=== PATIENT | female | born 1960 | race Caucasian/White ===

== ENCOUNTER 2017-06-19 01:57 | Emergency (ER) | payer MEDICARE, MEDICAID ==
[~2017-06-19] VITALS: Ht 170.2 cm; Wt 67.2 kg
[~2017-06-19 01:57] MED LIST: ENOX40SY7 SQ; FERR324T4 PO; NICO-630 TOP; TRAM50TA2 PO
[2017-06-19 02:03] VITALS: BP 111/73
[2017-06-19] MEDS ORDERED: ondansetron 4mg rapidly disintigrating tab PO ONE (02:30)
[2017-06-19] MEDS ORDERED: HYDROcodone/acetaminophen 10/325mg tab PO ONE (02:30)
[2017-06-19 02:33] LABS: UA COLLECTION TYPE CLN CATCH MIDSTREAM
[2017-06-19 02:34] LABS: CLARITY,URINE CLOUDY (Clear); COLOR,URINE YELLOW (Yellow); GLUCOSE, URINE NEGATIVE (Neg); KETONES,URINE NEGATIVE (Neg); LEUKOCYTE ESTERASE ,URINE LARGE (Neg); NITRITES, URINE POSITIVE (Neg); OCCULT BLOOD,URINE LARGE (Neg); PROTEIN,URINE 100 mg/dl (Neg); UROBILINOGEN,URINE 0.2 E.U/dL (0.2-1.0)
[2017-06-19 02:42] LABS: WBC,URINE TNTC /HPF (0-4)
[2017-06-19 02:43] LABS: BACTERIA,URINE 1+ /HPF (Neg); MUCUS STRANDS NONE SEEN /LPF (Neg); SQUAMOUS EPITHELIAL CELL,UR NONE SEEN /LPF (FEW)
[2017-06-19 03:07] LABS: BASOPHILS % (AUTO) 0.1 % (0-1); EOSINOPHILS % (AUTO) 0.3 % (0-6); HEMATOCRIT 45.2 % (35.0-45.0); HEMOGLOBIN 14.9 g/dl (12.0-16.0); LYMPHOCYTES # (AUTO) 1.2 X10'3 (1.1-4.8); LYMPHOCYTES % (AUTO) 13.5 % (21-51); MEAN CORPUSCULAR HEMOGLOBIN 30.5 PG (27.0-31.0); MEAN CORPUSCULAR HGB CONC 33.1 % (33.0-36.5); MEAN CORPUSCULAR VOLUME 92.1 FL (78-98); MEAN PLATELET VOLUME 7.5 FL (7.4-10.4); MONOCYTES # (AUTO) 0.6 X10'3 (0-0.9); MONOCYTES % (AUTO) 6.6 % (2-12); NEUTROPHILS # (AUTO) 7.3 X10'3 (1.8-7.7); NEUTROPHILS % (AUTO) 79.5 % (42-75); PLATELET COUNT 265 X10'3 (140-440); RED CELL DISTRIBUTION WIDTH 12.3 % (11.5-14.5); WHITE BLOOD COUNT 9.2 X10'3 (4.5-11.0)
[2017-06-19] MEDS ORDERED: CefTRIAXone 1000mg IM Kit (w/lidocaine diluent) IM ONE (03:25)
[2017-06-19 03:33] LABS: ALANINE AMINOTRANSFERASE 111 U/L (12-78); ALBUMIN 3.7 G/DL (3.4-5.0); ALBUMIN/GLOBULIN RATIO 0.9 (1.1-1.5); ALKALINE PHOSPHATASE 187 IU/L (46-116); ANION GAP 10 (8-16); ASPARTATE AMINO TRANSFERASE 76 U/L (10-37); BILIRUBIN,TOTAL 0.4 MG/DL (0.1-1.0); BLOOD UREA NITROGEN 17 MG/DL (7-18); BUN/CREATININE RATIO 17.2 (6.6-38.0); CALCIUM 9.4 MG/DL (8.5-10.1); CHLORIDE 103 MMOL/L (99-107); CREATININE 0.99 MG/DL (0.40-0.90); GLUCOSE 114 MG/DL (70-104); LIPASE 120 U/L (73-393); POTASSIUM 3.7 MMOL/L (3.5-5.1); SODIUM 139 MMOL/L (135-145); TOTAL CARBON DIOXIDE 25.9 MMOL/L (24-32); TOTAL PROTEIN 7.9 G/DL (6.4-8.2); TROPONIN I < 0.04 NG/ML (0.0-0.05); eGFR 58 ML/MIN
[2017-06-19] MEDS ORDERED: ONDA8TAB9 PO (03:50)
[2017-06-19] MEDS ORDERED: DOXY100C43 PO (03:50)
== END 2017-06-19 04:14 | disposition home or self-care (01) ==
LOC: ER 01:57
DX: N12 Tubulo-interstitial nephritis, not specified as acute or chronic (principal); F17.200 Nicotine dependence, unspecified, uncomplicated; G89.29 Other chronic pain; F12.10 Cannabis abuse, uncomplicated; Z90.710 Acquired absence of both cervix and uterus; Z90.49 Acquired absence of other specified parts of digestive tract; Z88.5 Allergy status to narcotic agent; Z60.2 Problems related to living alone
CPT/HCPCS: 36415; 74176; 80053; 81001; 83605; 83690; 84484; 85025; 87040; 87077; 87088; 87186; 96372; 99285; J0696

== ENCOUNTER 2017-06-23 13:02 | Emergency (ER) | payer MEDICARE, MEDICAID ==
[~2017-06-23] VITALS: Ht 170.2 cm; Wt 65.0 kg
[~2017-06-23 13:02] MED LIST changes: +DOXY100C43 PO; +ONDA8TAB9 PO
[2017-06-23 13:48] VITALS: BP 112/87
== END 2017-06-23 15:24 | disposition left against medical advice (07) ==
LOC: ER 13:03
DX: Z53.21 Procedure and treatment not carried out due to patient leaving prior to being seen by health care provider (principal)

== ENCOUNTER 2017-10-15 06:45 | Day surgery (SDC) | payer MEDICARE, MEDICAID ==
[2017-10-09 10:32] LABS: BASOPHILS % (AUTO) 0.6 % (0-1); EOSINOPHILS # (AUTO) 0.1 X10'3 (0-0.9); EOSINOPHILS % (AUTO) 1.8 % (0-6); LYMPHOCYTES # (AUTO) 2.4 X10'3 (1.1-4.8); LYMPHOCYTES % (AUTO) 48.5 % (21-51); MEAN CORPUSCULAR HEMOGLOBIN 31.4 PG (27.0-31.0); MEAN CORPUSCULAR HGB CONC 34.7 % (33.0-36.5); MEAN CORPUSCULAR VOLUME 90.3 FL (78-98); MEAN PLATELET VOLUME 7.3 FL (7.4-10.4); MONOCYTES # (AUTO) 0.4 X10'3 (0-0.9); MONOCYTES % (AUTO) 8.6 % (2-12); NEUTROPHILS % (AUTO) 40.5 % (42-75); PRE OP HEMATOCRIT 39.7 % (35.0-45.0); PRE OP HEMOGLOBIN 13.8 g/dL (12.0-16.0); PRE OP PLATELET COUNT 241 X10'3 (140-440); RED CELL DISTRIBUTION WIDTH 12.9 % (11.5-14.5)
[2017-10-09 10:42] LABS: CLARITY,URINE CLEAR (Clear); COLOR,URINE YELLOW (Yellow); GLUCOSE, URINE NEGATIVE (Neg); KETONES,URINE NEGATIVE (Neg); LEUKOCYTE ESTERASE ,URINE NEGATIVE (Neg); NITRITES, URINE NEGATIVE (Neg); OCCULT BLOOD,URINE NEGATIVE (Neg); PH,URINE 5.5 (4.8-8.0); PROTEIN,URINE NEGATIVE (Neg); UROBILINOGEN,URINE 0.2 E.U/dL (0.2-1.0)
[2017-10-09 10:47] LABS: UA COLLECTION TYPE NON-SPECIFIED
[2017-10-09 10:58] LABS: ALBUMIN 3.6 G/DL (3.4-5.0); ALBUMIN/GLOBULIN RATIO 1.1 (1.1-1.5); ALKALINE PHOSPHATASE 106 IU/L (46-116); BLOOD UREA NITROGEN 19 MG/DL (7-18); BUN/CREATININE RATIO 21.6 (6.6-38.0); CALCIUM 8.6 MG/DL (8.5-10.1); CHLORIDE 105 MMOL/L (99-107); CREATININE 0.88 MG/DL (0.40-0.90); PRE OP ALT 27 U/L (30-65); PRE OP ANION GAP 6 (8-16); PRE OP AST 17 U/L (10-37); PRE OP BILIRUB, TOTAL 0.3 MG/DL (0.0-1.0); PRE OP GLUCOSE 72 MG/DL (70-104); PRE OP POTASSIUM 3.6 MMOL/L (3.4-5.1); PRE OP SODIUM 138 MMOL/L (135-145); TOTAL CARBON DIOXIDE 27.2 MMOL/L (24-32); TOTAL PROTEIN 6.9 G/DL (6.4-8.2); eGFR 66 ML/MIN
[2017-10-15] VITALS (9 sets, daily range): BP systolic 110–141; BP diastolic 65–86
[~2017-10-15] VITALS: Ht 170.2 cm; Wt 63.9 kg
[~2017-10-15 06:45] MED LIST changes: +ASPI81TA46 PO; +BUPIVAcaine/PF 2.5mg/ml (0.25%) 10ml vial ONE; -DOXY100C43 PO; -ENOX40SY7 SQ; -FERR324T4 PO; +GLUC-219 PO; +LIDOcaine 1% (10mg/ml) 2ml vial ONE; -NICO-630 TOP; -ONDA8TAB9 PO; -TRAM50TA2 PO; +VIT-11 PO; +famotidine 20mg tablet PO ONE; +ringers solution, lacted 1,000 ML IV SCH; +scopolamine 1.5mg patch.TD72 TD ONE
[2017-10-15] MEDS ORDERED: Cefazolin 2GM/50ML dext iso,osmotic IVPB IV ONE (07:26)
[2017-10-15] MEDS ORDERED: VANCOMYCIN INJ 1000 MG in NORMAL SALINE 250ml IV.SOLN IV ONE (07:26)
[2017-10-15] MEDS ORDERED: ringers solution, lacted 1,000 ML IV SCH (08:48)
[2017-10-15] MEDS ORDERED: ondansetron/PF 4mg/2ml inj IV PRN (08:50)
[2017-10-15] MEDS ORDERED: proCHLORperazine 10 MG/2 ml inj IV PRN (08:50)
[2017-10-15] MEDS ORDERED: meperidine/PF 25mg/ml syringe IV PRN ×3 (08:50)
[2017-10-15] MEDS ORDERED: morphine 4 MG/ML inj SYRINge IV PRN ×2 (08:50)
[2017-10-15] MEDS ORDERED: sevoflurane 250ml liquid IH ONE ×2 (09:42)
[2017-10-15] MEDS ORDERED: fentaNYL/PF 50MCG/1 ML 2ML syringe ONE (09:44)
[2017-10-15] MEDS ORDERED: midazolam 2 mg/2 ml injection ONE (09:45)
[2017-10-15] MEDS ORDERED: LIDOcaine 2% (20mg/ml) 5ml vial ONE (09:46)
[2017-10-15] MEDS ORDERED: propofol inj 20 ML IV ONE (09:46)
[2017-10-15] MEDS ORDERED: dexamethasone sod phosphate 4mg/ml inj. ONE (09:52)
[2017-10-15] MEDS ORDERED: ondansetron/PF 4mg/2ml inj ONE (09:53)
[2017-10-15] MEDS ORDERED: methylPREDNISolone sod succ 125mg/2ml vial ONE (10:09)
== END 2017-10-15 11:35 | disposition home or self-care (01) ==
LOC: PRE-OP 06:45 → PAS 11:35
PROVIDERS: ATTEND Orthopaedic Surgery
DX: D36.10 Benign neoplasm of peripheral nerves and autonomic nervous system, unspecified (principal); G57.12 Meralgia paresthetica, left lower limb; J44.9 Chronic obstructive pulmonary disease, unspecified; M19.90 Unspecified osteoarthritis, unspecified site; Z72.89 Other problems related to lifestyle; Z90.710 Acquired absence of both cervix and uterus; Z96.611 Presence of right artificial shoulder joint; Z79.82 Long term (current) use of aspirin; Z79.891 Long term (current) use of opiate analgesic; Z96.643 Presence of artificial hip joint, bilateral; Z87.891 Personal history of nicotine dependence; Z90.49 Acquired absence of other specified parts of digestive tract; Z88.5 Allergy status to narcotic agent; Z79.899 Other long term (current) drug therapy; Z98.890 Other specified postprocedural states
CPT/HCPCS: 36415; 64714; 80053; 81003; 84443; 85025; 93005; A6449; J0690; J1100; J2001; J2250; J2405; J2704; J2930; J3010; J3370; J3490; J7030; J7120; 88304; A7000

== ENCOUNTER 2017-12-27 19:57 | Emergency (ER) | payer MEDICARE, MEDICAID ==
[~2017-12-27] VITALS: Ht 170.2 cm; Wt 65.4 kg
[~2017-12-27 19:57] MED LIST changes: -BUPIVAcaine/PF 2.5mg/ml (0.25%) 10ml vial ONE; -LIDOcaine 1% (10mg/ml) 2ml vial ONE; -famotidine 20mg tablet PO ONE; -ringers solution, lacted 1,000 ML IV SCH; -scopolamine 1.5mg patch.TD72 TD ONE
[2017-12-27] MEDS ORDERED: TETanus/Pertussis (Acell)/Diphther VAC/PF (Tdap-Adult) 0.5ml syringe IMVAC ONE (20:50)
[2017-12-27] MEDS ORDERED: ibuprofen tablet 400 MG TABLET PO ONE (20:50)
[2017-12-27 21:31] VITALS: BP 132/71
== END 2017-12-27 21:33 | disposition home or self-care (01) ==
LOC: ER 19:57
DX: S91.332A Puncture wound without foreign body, left foot, initial encounter (principal); G89.29 Other chronic pain; F17.200 Nicotine dependence, unspecified, uncomplicated; F12.90 Cannabis use, unspecified, uncomplicated; Z90.49 Acquired absence of other specified parts of digestive tract; Z90.710 Acquired absence of both cervix and uterus; Z88.6 Allergy status to analgesic agent; W22.8XXA Striking against or struck by other objects, initial encounter; Y93.89 Activity, other specified; Y92.89 Other specified places as the place of occurrence of the external cause; Y99.8 Other external cause status
CPT/HCPCS: 90471; 90715; 99283

== ENCOUNTER 2018-09-05 20:33 | Emergency (ER) | payer MEDICARE, MEDICAID ==
[~2018-09-05] VITALS: Ht 170.2 cm; Wt 68.2 kg
[~2018-09-05 20:33] MED LIST changes: +ASPI81TA44 PO; -ASPI81TA46 PO
[2018-09-05 20:46] VITALS: BP 122/85
[2018-09-05] MEDS ORDERED: ketorolac trometh inj. 60 MG/2 ML VIAL IM ONE (21:45)
== END 2018-09-05 22:03 | disposition home or self-care (01) ==
LOC: ER 20:34
DX: S90.32XA Contusion of left foot, initial encounter (principal); G89.29 Other chronic pain; F12.10 Cannabis abuse, uncomplicated; Z88.5 Allergy status to narcotic agent; Z90.710 Acquired absence of both cervix and uterus; Z90.49 Acquired absence of other specified parts of digestive tract; W18.30XA Fall on same level, unspecified, initial encounter; Y93.89 Activity, other specified; Y92.89 Other specified places as the place of occurrence of the external cause; Y99.8 Other external cause status
CPT/HCPCS: 73630; 96372; 99283; J1885

== ENCOUNTER 2018-12-16 05:25 | Inpatient (IN) | payer MEDICARE, MEDICAID ==
[2018-12-08 15:32] LABS: CLARITY,URINE SLIGHTLY CLOUDY (Clear); GLUCOSE, URINE NEGATIVE (Neg); KETONES,URINE NEGATIVE (Neg); LEUKOCYTE ESTERASE ,URINE TRACE (Neg); NITRITES, URINE NEGATIVE (Neg); OCCULT BLOOD,URINE NEGATIVE (Neg); PH,URINE 5.5 (4.8-8.0); PROTEIN,URINE TRACE mg/dl (Neg); UROBILINOGEN,URINE 0.2 E.U/dL (0.2-1.0)
[2018-12-08 15:35] LABS: BASOPHILS % (AUTO) 0.8 % (0-1); EOSINOPHILS # (AUTO) 0.1 X10'3 (0-0.9); EOSINOPHILS % (AUTO) 1.5 % (0-6); LYMPHOCYTES # (AUTO) 2.4 X10'3 (1.1-4.8); LYMPHOCYTES % (AUTO) 50.7 % (21-51); MEAN CORPUSCULAR HEMOGLOBIN 30.9 PG (27.0-31.0); MEAN CORPUSCULAR HGB CONC 33.6 g/dL (33.0-36.5); MEAN PLATELET VOLUME 7.4 FL (7.4-10.4); MONOCYTES # (AUTO) 0.4 X10'3 (0-0.9); MONOCYTES % (AUTO) 8.4 % (2-12); NEUTROPHILS # (AUTO) 1.9 X10'3 (1.8-7.7); NEUTROPHILS % (AUTO) 38.6 % (42-75); PRE OP HEMATOCRIT 41.8 % (35.0-45.0); PRE OP PLATELET COUNT 267 X10'3 (140-440); RED BLOOD COUNT 4.54 X10'6 (4.20-5.60); RED CELL DISTRIBUTION WIDTH 12.4 % (11.5-14.5)
[2018-12-08 15:39] LABS: UA COLLECTION TYPE CLN CATCH MIDSTREAM
[2018-12-08 15:40] LABS: COLOR,URINE AMBER (Yellow)
[2018-12-08 15:43] LABS: PRE OP PROTIME 10.3 SECONDS (9.0-12.0)
[2018-12-08 15:47] LABS: RBC,URINE NONE SEEN /HPF (0-2); WBC,URINE 0-4 /HPF (0-4)
[2018-12-08 15:48] LABS: BACTERIA,URINE 1+ /HPF (Neg); HYALINE CASTS 0-3 /LPF (NEGATIVE); MUCUS STRANDS MODERATE /LPF (Neg); SQUAMOUS EPITHELIAL CELL,UR FEW /LPF (FEW)
[2018-12-08 15:49] LABS: ALBUMIN 3.7 G/DL (3.4-5.0); ALBUMIN/GLOBULIN RATIO 1.1 (1.1-1.5); ALKALINE PHOSPHATASE 88 IU/L (46-116); BLOOD UREA NITROGEN 18 MG/DL (7-18); BUN/CREATININE RATIO 18.9 (6.6-38.0); CALCIUM 8.6 MG/DL (8.5-10.1); CHLORIDE 108 MMOL/L (99-107); CREATININE 0.95 MG/DL (0.40-0.90); PRE OP ALT 22 U/L (30-65); PRE OP ANION GAP 6 (8-16); PRE OP AST 18 U/L (10-37); PRE OP BILIRUB, TOTAL 0.3 MG/DL (0.0-1.0); PRE OP GLUCOSE 88 MG/DL (70-104); PRE OP POTASSIUM 4.2 MMOL/L (3.4-5.1); PRE OP SODIUM 143 MMOL/L (135-145); TOTAL CARBON DIOXIDE 28.9 MMOL/L (24-32); eGFR 60 ML/MIN
[~2018-12-16] VITALS: Ht 170.2 cm; Wt 62.6 kg
[2018-12-16] VITALS (16 sets, daily range): BP systolic 97–151; BP diastolic 67–95
[2018-12-16] MEDS ORDERED: albuterol 2.5 MG/3 ML nebule NEB ONE (05:30)
[2018-12-16] MEDS ORDERED: cefazolin/dext.iso 2gm/50ml 50 ML IV ONE (05:30)
[2018-12-16] MEDS ORDERED: VANCOMYCIN INJ 1000 MG in NORMAL SALINE 250ml IV.SOLN IV ONE (05:30)
[2018-12-16] MEDS ORDERED: famotidine 20mg tablet PO ONE (05:30)
[2018-12-16] MEDS ORDERED: ringers solution, lacted 1,000 ML IV SCH ×2 (05:30→08:49)
[2018-12-16] MEDS ORDERED: LIDOcaine 1% (10mg/ml) 2ml vial ONE (06:14)
[2018-12-16] MEDS ORDERED: ROPIVAcaine 0.5% (5mg/ml) 30ml vial ONE (07:10)
[2018-12-16] MEDS ORDERED: cloNIDine hcl/PF 100mcg/ml inj ONE (07:10)
[2018-12-16] MEDS ORDERED: MIDAZolam 5mg/5ml vial ONE (07:13)
[2018-12-16] MEDS ORDERED: fentaNYL/PF 50MCG/1 ML 2ML syringe ONE (07:13)
[2018-12-16] MEDS ORDERED: propofol inj 20 ML IV ONE (07:13)
[2018-12-16] MEDS ORDERED: sevoflurane 250ml liquid IH ONE (07:16)
[2018-12-16] MEDS ORDERED: meperidine/PF 25mg/ml syringe IV PRN ×3 (08:50)
[2018-12-16] MEDS ORDERED: proCHLORperazine 10 MG/2 ml inj IV PRN (08:50)
[2018-12-16] MEDS ORDERED: ondansetron/PF 4mg/2ml inj IV PRN ×2 (08:50→10:30)
[2018-12-16] MEDS ORDERED: morphine 4 MG/ML inj SYRINge IV PRN ×2 (08:50)
[2018-12-16] MEDS ORDERED: ceFAZolin 1000mg inj ONE (09:56)
[2018-12-16] MEDS ORDERED: dexamethasone sod phosphate 4mg/ml inj. ONE (09:57)
[2018-12-16] MEDS ORDERED: ondansetron/PF 4mg/2ml inj ONE (09:57)
--- NOTE | 2018-12-16 10:13 | NUR ---
Received from OR via , accompanied by Anesthesiologist DR DOMINGUEZ and report given by Anesthesiolgist. AWAKENS TO VOICE. VITALS STABLE. DRESSING DI. YARELI PAIN. FINGERS WARM AND PINK. LUE IN SIMPLE SLING.
[2018-12-16] MEDS ORDERED: acetaminophen 325mg tablet PO PRN (10:30)
[2018-12-16] MEDS ORDERED: mag hydrox/Alum hydrox/simeth 30ml oral suspension PO PRN (10:30)
[2018-12-16] MEDS ORDERED: metoclopramide 5 mg/ml inj IV PRN (10:30)
[2018-12-16] MEDS ORDERED: magnesium hydroxide 30ml (MOM) UD suspension PO PRN (10:30)
[2018-12-16] MEDS ORDERED: bisacodyl 10mg suppository rectal RC PRN (10:30)
[2018-12-16] MEDS ORDERED: diphenhydrAMINE 25mg capsule PO PRN ×2 (10:30)
[2018-12-16] MEDS ORDERED: naloxone 0.4 mg/ml inj IV PRN (10:30)
[2018-12-16] MEDS ORDERED: CADD PCA waste documentation MC PRN (10:30)
[2018-12-16] MEDS: ROPIVAcaine 0.2%/PF PAIN PUMP 550 ML IJ SCH (10:31)
--- NOTE | 2018-12-16 11:03 | NUR ---
Patient in room PAS IN 900. I have received report from Darrell DORADO and had the opportunity to ask questions and assume patient care.
--- NOTE | 2018-12-16 11:13 | NUR ---
Report called to receiving nurse. Transferred via BED Belongings . Special Issues communicated to receiving nurse. AWAKE AND ORIENTED. VITALS STABLE. DRESSING DI. STATES PAIN IMPROVING. TO ORTHO RM 4009C AT THIS TIME.
--- NOTE | 2018-12-16 11:34 | NUR ---
patient on the floor. s Addendum: 12/16/18 at 1136 by Kvng Coyne RN patient on the floor. post op vitals started. family at bed side. received report from Darrell DORADO. hemo vac emptied 120ml.
[2018-12-16] MEDS: potassium cl 20mEq in 1/2 NS 1,000 ML IV SCH ×3 (11:46→21:22)
--- NOTE | 2018-12-16 11:53 | NUR ---
CALL EDDIE GRAF WHEN DISCHARGED.
[2018-12-16] MEDS: HYDROmorphone/NS 1 mg/ml CADD 50 ML IV SCH ×6 (12:07→23:00)
[2018-12-16] MEDS: gabapentin 300mg capsule PO SCH ×2 (13:20→21:18)
[2018-12-16] MEDS: HYDROcodone/acetaminophen 10/325mg tab PO PRN ×2 (13:20→19:20)
[2018-12-16] MEDS: ceFAZolin 1GM/D5W- ADD-VANTAGE 50 ML IV SCH (16:08)
--- NOTE | 2018-12-16 18:00 | NUR ---
I AGREE WITH MY PRECEPTEE KAMRYN DORADO'S CHARTING.
--- NOTE | 2018-12-16 18:13 | NUR ---
Problems reprioritized. Patient report given, questions answered & plan of care reviewed with Faith DORADO.
[2018-12-16] MEDS ORDERED: vancomycin/NS 1 GM ADD-VANTAGE 250 ML IV SCH (20:00)
[2018-12-16] MEDS: sennosides/docusate sodium tablet PO SCH (20:00)
[2018-12-16] MEDS: sennosides 8.6mg tablet PO SCH (21:18)
[2018-12-17] MEDS: ceFAZolin 1GM/D5W- ADD-VANTAGE 50 ML IV SCH (00:37)
[2018-12-17] MEDS: HYDROcodone/acetaminophen 10/325mg tab PO PRN ×6 (00:42→22:05)
[2018-12-17] MEDS: HYDROmorphone/NS 1 mg/ml CADD 50 ML IV SCH ×3 (01:00→05:00)
[2018-12-17 02:00] VITALS: BP 97/66
[2018-12-17] MEDS: potassium cl 20mEq in 1/2 NS 1,000 ML IV SCH ×2 (05:27→18:26)
[2018-12-17 06:00] VITALS: BP 96/63
--- NOTE | 2018-12-17 06:08 | NUR ---
pt in immoblilizer for shoulder. will D/C cadd as pt pain is controlled.
--- NOTE | 2018-12-17 06:31 | NUR ---
reported to days. noted pt does not have a CADD, will discontinue. SL patient to work with PT. norco given prior to PT. anticipate home today if pain controlled.
--- NOTE | 2018-12-17 06:33 | NUR ---
Patient in room ORTHO 4009. I have received report from Viktoriya DORADO and Latricia DORADO and had the opportunity to ask questions and assume patient care.
--- NOTE | 2018-12-17 06:36 | NUR ---
pain reassessment not done at 0541
[2018-12-17 06:57] LABS: ANION GAP 7 (8-16); CHLORIDE 109 MMOL/L (99-107); POTASSIUM 5.1 MMOL/L (3.5-5.1); SODIUM 141 MMOL/L (135-145); TOTAL CARBON DIOXIDE 25.3 MMOL/L (24-32)
[2018-12-17 06:58] LABS: BASOPHILS % (AUTO) 0.2 % (0-1); EOSINOPHILS % (AUTO) 0.4 % (0-6); HEMATOCRIT 30.2 % (35.0-45.0); HEMOGLOBIN 10.2 g/dl (12.0-16.0); LYMPHOCYTES # (AUTO) 1.8 X10'3 (1.1-4.8); LYMPHOCYTES % (AUTO) 23.3 % (21-51); MEAN CORPUSCULAR HEMOGLOBIN 31.5 PG (27.0-31.0); MEAN CORPUSCULAR HGB CONC 33.9 g/dL (33.0-36.5); MEAN CORPUSCULAR VOLUME 92.9 FL (78-98); MEAN PLATELET VOLUME 7.9 FL (7.4-10.4); MONOCYTES # (AUTO) 0.7 X10'3 (0-0.9); MONOCYTES % (AUTO) 8.7 % (2-12); NEUTROPHILS # (AUTO) 5.2 X10'3 (1.8-7.7); NEUTROPHILS % (AUTO) 67.4 % (42-75); PLATELET COUNT 195 X10'3 (140-440); RED BLOOD COUNT 3.25 X10'6 (4.20-5.60); RED CELL DISTRIBUTION WIDTH 12.4 % (11.5-14.5); WHITE BLOOD COUNT 7.8 X10'3 (4.5-11.0)
[2018-12-17] MEDS: sennosides/docusate sodium tablet PO SCH ×2 (07:05→19:52)
[2018-12-17] MEDS: multivitamins, therapeutics tablet PO SCH (07:05)
[2018-12-17] MEDS: gabapentin 300mg capsule PO SCH ×3 (07:05→19:52)
[2018-12-17] MEDS: enoxaparin 40mg/0.4ml syringe SQ SCH (07:06)
[2018-12-17 10:00] VITALS: BP 93/60
--- NOTE | 2018-12-17 15:32 | NUR ---
Pt s/p total left shoulder surgery seen at bedside provided with written and verbal protein education with RD contact information. Pt currently on regular diet documented with 75% PO intake. Pt requests double protein TID, cottage cheese TID, and regular yogurt TID. Pt reports difficulty cutting food d/t recent surgery and is agreeable to chop all TID. All preferences d/w dietary. Will continue to follow. Addendum: 12/17/18 at [address] Amended: Links added.
--- NOTE | 2018-12-17 16:13 | NUR ---
multiple calls to Dr. Morris regarding pain medication for DC and if patient needs to start asprin. No answer.
[2018-12-17 18:00] VITALS: BP 116/75
--- NOTE | 2018-12-17 18:06 | NUR ---
I AGREE WITH MY PRECEPTEE KAMRYN DORADO'S CHARTING.
--- NOTE | 2018-12-17 18:15 | NUR ---
Patient in room ORTHO 4009. I have received report from SamRN and KvngRN and had the opportunity to ask questions and assume patient care.
--- NOTE | 2018-12-17 18:23 | NUR ---
Problems reprioritized. Patient report given, questions answered & plan of care reviewed with Sadie DORADO.
[2018-12-17] MEDS: sennosides 8.6mg tablet PO SCH (19:52)
[2018-12-17] MEDS: celeCOXIB 100mg capsule PO SCH (19:52)
--- NOTE | 2018-12-17 20:45 | NUR ---
I increased the OnQpump to 6ml/hr from 4ml/hr since she is unable to have pain medicine until 21:30.
[2018-12-17 22:00] VITALS: BP 113/78
[2018-12-18] MEDS: potassium cl 20mEq in 1/2 NS 1,000 ML IV SCH (02:26)
[2018-12-18] MEDS: HYDROcodone/acetaminophen 10/325mg tab PO PRN ×2 (04:35→08:20)
[2018-12-18 06:00] VITALS: BP 107/69
--- NOTE | 2018-12-18 06:42 | NUR ---
Problems reprioritized. Patient report given, questions answered & plan of care reviewed with AVE Sparrow.
[2018-12-18 06:53] LABS: BASOPHILS % (AUTO) 0.7 % (0-1); EOSINOPHILS % (AUTO) 1.3 % (0-6); HEMATOCRIT 29.9 % (35.0-45.0); HEMOGLOBIN 10.1 g/dl (12.0-16.0); LYMPHOCYTES # (AUTO) 1.3 X10'3 (1.1-4.8); LYMPHOCYTES % (AUTO) 35.2 % (21-51); MEAN CORPUSCULAR HEMOGLOBIN 31.6 PG (27.0-31.0); MEAN CORPUSCULAR HGB CONC 33.9 g/dL (33.0-36.5); MEAN CORPUSCULAR VOLUME 93.3 FL (78-98); MEAN PLATELET VOLUME 7.8 FL (7.4-10.4); MONOCYTES # (AUTO) 0.4 X10'3 (0-0.9); MONOCYTES % (AUTO) 11.2 % (2-12); NEUTROPHILS % (AUTO) 51.6 % (42-75); PLATELET COUNT 180 X10'3 (140-440); RED BLOOD COUNT 3.21 X10'6 (4.20-5.60); RED CELL DISTRIBUTION WIDTH 13.1 % (11.5-14.5); WHITE BLOOD COUNT 3.8 X10'3 (4.5-11.0)
--- NOTE | 2018-12-18 06:57 | NUR ---
Patient in room ORTHO 4009. I have received report from Sadie DORADO and had the opportunity to ask questions and assume patient care.
[2018-12-18] MEDS: celeCOXIB 100mg capsule PO SCH (08:18)
[2018-12-18] MEDS: gabapentin 300mg capsule PO SCH (08:18)
[2018-12-18] MEDS: multivitamins, therapeutics tablet PO SCH (08:18)
[2018-12-18] MEDS: sennosides/docusate sodium tablet PO SCH (08:19)
[2018-12-18] MEDS: enoxaparin 40mg/0.4ml syringe SQ SCH (08:21)
[2018-12-18] MEDS: ROPIVAcaine 0.2%/PF PAIN PUMP 550 ML IJ SCH (09:38)
--- NOTE | 2018-12-18 11:56 | NUR ---
Patient discharge to home with sister, all belongings sent, pain meds e-scripted to [facility] in [place] by Dr. morley, patient stable upon discharge
== END 2018-12-18 12:10 | disposition home or self-care (01) | DRG 483 ==
LOC: PAS IN 05:25 → EDSTATUS 07:30 → ORTHO 4S 11:55
PROVIDERS: ADMIT Orthopaedic Surgery; ATTEND Orthopaedic Surgery
PROC: 0RRK0JZ Replacement of Left Shoulder Joint with Synthetic Substitute, Open Approach (ICD-10-PCS; principal; 2018-12-18)
PROC: 3E0T3BZ Introduction of Anesthetic Agent into Peripheral Nerves and Plexi, Percutaneous Approach (ICD-10-PCS; 2018-12-18)
DX: M19.012 Primary osteoarthritis, left shoulder (principal); D62 Acute posthemorrhagic anemia; K21.9 Gastro-esophageal reflux disease without esophagitis; Z96.611 Presence of right artificial shoulder joint; F17.210 Nicotine dependence, cigarettes, uncomplicated; Z96.643 Presence of artificial hip joint, bilateral; G57.12 Meralgia paresthetica, left lower limb; Z79.899 Other long term (current) drug therapy; Z88.5 Allergy status to narcotic agent; Z79.82 Long term (current) use of aspirin
CPT/HCPCS: 36415; 73020; 80051; 80053; 81001; 82948; 85025; 85610; 85730; 87081; 87088; 94640; 94760; 97161; 97530; A4618; A6250; A6258; A6449; A7000; C1713; C1758; C1776; G0378; J0690; J0735; J1100; J1170; J1650; J2001; J2175; J2250; J2405; J2704; J2795; J3010; J3370; J3480; J7120; L3650

== ENCOUNTER 2018-12-20 15:21 | Inpatient (IN) | payer MEDICARE, MEDICAID ==
[~2018-12-20] VITALS: Ht 170.2 cm; Wt 62.7 kg
[2018-12-20] MEDS ORDERED: morphine 4 MG/ML inj SYRINge IV PRN (15:40)
[2018-12-20] MEDS ORDERED: proCHLORperazine 10 MG/2 ml inj IV ONE (15:40)
[2018-12-20] MEDS ORDERED: normal saline 1000ML IV soln IVB ONE (15:40)
[2018-12-20 16:34] LABS: BASOPHILS % (AUTO) 0.4 % (0-1); EOSINOPHILS # (AUTO) 0.1 X10'3 (0-0.9); EOSINOPHILS % (AUTO) 0.7 % (0-6); HEMATOCRIT 41.2 % (35.0-45.0); HEMOGLOBIN 13.6 g/dl (12.0-16.0); LYMPHOCYTES # (AUTO) 1.6 X10'3 (1.1-4.8); LYMPHOCYTES % (AUTO) 17.5 % (21-51); MEAN CORPUSCULAR HEMOGLOBIN 30.9 PG (27.0-31.0); MEAN CORPUSCULAR HGB CONC 33.1 g/dL (33.0-36.5); MEAN CORPUSCULAR VOLUME 93.4 FL (78-98); MEAN PLATELET VOLUME 8.7 FL (7.4-10.4); MONOCYTES # (AUTO) 0.4 X10'3 (0-0.9); MONOCYTES % (AUTO) 4.4 % (2-12); PLATELET COUNT 245 X10'3 (140-440); RED BLOOD COUNT 4.41 X10'6 (4.20-5.60); RED CELL DISTRIBUTION WIDTH 13.2 % (11.5-14.5); WHITE BLOOD COUNT 9.1 X10'3 (4.5-11.0)
[2018-12-20 17:02] LABS: ALANINE AMINOTRANSFERASE 368 U/L (12-78); ALBUMIN 3.3 G/DL (3.4-5.0); ALBUMIN/GLOBULIN RATIO 0.7 (1.1-1.5); ALKALINE PHOSPHATASE 482 IU/L (46-116); ANION GAP 13 (8-16); ASPARTATE AMINO TRANSFERASE 122 U/L (10-37); BILIRUBIN,TOTAL 0.5 MG/DL (0.1-1.0); BLOOD UREA NITROGEN 10 MG/DL (7-18); BUN/CREATININE RATIO 14.9 (6.6-38.0); CALCIUM 9.8 MG/DL (8.5-10.1); CHLORIDE 108 MMOL/L (99-107); CREATININE 0.67 MG/DL (0.40-0.90); GLUCOSE 146 MG/DL (70-104); LIPASE 50 U/L (73-393); POTASSIUM 3.6 MMOL/L (3.5-5.1); SODIUM 146 MMOL/L (135-145); TOTAL CARBON DIOXIDE 24.8 MMOL/L (24-32); TOTAL PROTEIN 7.9 G/DL (6.4-8.2); eGFR 90 ML/MIN
[2018-12-20] MEDS ORDERED: normal saline 1000ML IV soln IV ONE (18:40)
[2018-12-20] MEDS ORDERED: levoFLOXACIN-Levaquin 750MG/D5 150 ML IV ONE (18:40)
[2018-12-20] MEDS ORDERED: HYDR-3972 PO (18:44)
[2018-12-20] MEDS ORDERED: ondansetron/PF 4mg/2ml inj IV ONE (18:55)
--- NOTE | 2018-12-20 18:56 | NUR ---
dr hart updated that pt nauseaus and just had her 3rd episode of incontinence of liquid stool that light brown in color, he will order adtl antinausea meds and cdiff lab. Pt reports no history of incontinence of stool and that this happens so fast she cannot hold it in. Pts sister at bedside. Pt with dressing in palce to the left shouder surgical area and she states it is not to be removed until she is seen by Dr. Morris for f/u. shouder immobilizer also in place and not to be removed. Pt up for admission, med rec completed. Awaiting CT read and need to straight cath for urine. Pt is cooperative with all care and taryn stable vs, afebrile.
[2018-12-20 19:07] LABS: CLARITY,URINE SLIGHTLY CLOUDY (Clear); COLOR,URINE YELLOW (Yellow); GLUCOSE, URINE NEGATIVE (Neg); KETONES,URINE 15 mg/dl (Neg); LEUKOCYTE ESTERASE ,URINE NEGATIVE (Neg); NITRITES, URINE NEGATIVE (Neg); OCCULT BLOOD,URINE TRACE-INTACT (Neg); PROTEIN,URINE NEGATIVE (Neg)
[2018-12-20 19:08] LABS: UA COLLECTION TYPE STRAIGHT CATH
[2018-12-20] MEDS ORDERED: magnesium 4gm in 100ml NS 100 ML IV PRN (19:10)
[2018-12-20] MEDS ORDERED: morphine 2 MG/ML inj. syringe IV PRN ×2 (19:10)
[2018-12-20] MEDS ORDERED: mag hydrox/Alum hydrox/simeth 30ml oral suspension PO PRN (19:10)
[2018-12-20] MEDS ORDERED: magnesium 2GM in 50ml NS 50 ML IV PRN (19:10)
[2018-12-20] MEDS ORDERED: acetaminophen 325mg tablet PO PRN (19:10)
[2018-12-20] MEDS ORDERED: potassium CL 10mEq/100ml bag 100 ML IV PRN ×2 (19:10)
[2018-12-20] MEDS ORDERED: magnesium hydroxide 30ml (MOM) UD suspension PO PRN (19:10)
[2018-12-20] MEDS ORDERED: potassium Cl 20 mEq SR tablet PO PRN ×2 (19:10)
[2018-12-20] MEDS ORDERED: magnesium Cl slow-release 64mg tablet PO PRN (19:10)
[2018-12-20 19:31] LABS: RBC,URINE NONE SEEN /HPF (0-2); SQUAMOUS EPITHELIAL CELL,UR MANY /LPF (FEW); WBC,URINE 0-4 /HPF (0-4)
[2018-12-20 19:32] LABS: BACTERIA,URINE FEW /HPF (Neg)
[2018-12-20] MEDS: normal saline 1000ml 1,000 ML IV SCH (20:16)
--- NOTE | 2018-12-20 20:16 | NUR ---
PT WITH ROOM [facility], 352A. HR 110, OTHERWISE VSS, AWAITING RESULT OF CDIFF SAMPLE. SISTER, EDDIE DALY, CELL # [phone], PRIMAY CONTACT FOR PT.
--- NOTE | 2018-12-20 20:22 | NUR ---
DR MILLER AT BEDSIDE TALKING WITH PT AND SISTER. VERBAL RECEIVED FOR A 3RD LITER NS TO RUN OVER 3 HRS (IN ADDITION TO RUNNING THE NS 100 ML.HR
[2018-12-20] MEDS ORDERED: normal saline 1000ml 1,000 ML IV ONE (20:25)
--- NOTE | 2018-12-20 20:27 | NUR ---
received report from ED. awaiting pt arrival
[2018-12-20 21:00] VITALS: BP 173/108
--- NOTE | 2018-12-20 21:00 | NUR ---
pt arrived to unit, placed in bed. VSS, BLL, 2x rails up, in no apparent distress. will continue to monitor
[2018-12-20] MEDS: lactobacillus rhamnosus 10,000 MMU CELLS/CAPSULE PO SCH (21:32)
[2018-12-20] MEDS ORDERED: magnesium citrate 296ml oral solution PO ONE (21:55)
[2018-12-20] MEDS ORDERED: hydrALAZINE 20mg/ml inj. IV PRN (23:35)
[2018-12-20] MEDS ORDERED: hyDRALAzine 10mg tablet PO PRN (23:35)
[2018-12-21 00:09] VITALS: BP 122/64
[2018-12-21] MEDS: ondansetron/PF 4mg/2ml inj IV PRN (00:29)
[2018-12-21] MEDS: metroNIDAZOLE-Flagyl 500mg/NS 100 ML IV SCH ×3 (02:09→15:36)
[2018-12-21 04:59] LABS: BASOPHILS % (AUTO) 0.1 % (0-1); EOSINOPHILS % (AUTO) 0 % (0-6); HEMATOCRIT 36.8 % (35.0-45.0); HEMOGLOBIN 12.4 g/dl (12.0-16.0); LYMPHOCYTES # (AUTO) 0.9 X10'3 (1.1-4.8); LYMPHOCYTES % (AUTO) 7.7 % (21-51); MEAN CORPUSCULAR HEMOGLOBIN 31.1 PG (27.0-31.0); MEAN CORPUSCULAR HGB CONC 33.7 g/dL (33.0-36.5); MEAN CORPUSCULAR VOLUME 92.5 FL (78-98); MEAN PLATELET VOLUME 7.9 FL (7.4-10.4); MONOCYTES # (AUTO) 0.7 X10'3 (0-0.9); MONOCYTES % (AUTO) 5.8 % (2-12); NEUTROPHILS # (AUTO) 9.9 X10'3 (1.8-7.7); NEUTROPHILS % (AUTO) 86.4 % (42-75); PLATELET COUNT 262 X10'3 (140-440); RED BLOOD COUNT 3.98 X10'6 (4.20-5.60); RED CELL DISTRIBUTION WIDTH 12.8 % (11.5-14.5); WHITE BLOOD COUNT 11.4 X10'3 (4.5-11.0)
[2018-12-21] MEDS: normal saline 1000ml 1,000 ML IV SCH ×2 (05:06→12:55)
[2018-12-21 05:10] LABS: ALANINE AMINOTRANSFERASE 217 U/L (12-78); ALBUMIN 2.4 G/DL (3.4-5.0); ALBUMIN/GLOBULIN RATIO 0.6 (1.1-1.5); ALKALINE PHOSPHATASE 339 IU/L (46-116); ANION GAP 10 (8-16); ASPARTATE AMINO TRANSFERASE 54 U/L (10-37); BILIRUBIN,TOTAL 0.4 MG/DL (0.1-1.0); BLOOD UREA NITROGEN 10 MG/DL (7-18); BUN/CREATININE RATIO 12.8 (6.6-38.0); CALCIUM 8.1 MG/DL (8.5-10.1); CHLORIDE 105 MMOL/L (99-107); CREATININE 0.78 MG/DL (0.40-0.90); GLUCOSE 148 MG/DL (70-104); MAGNESIUM 1.5 MG/DL (1.5-2.4); SODIUM 138 MMOL/L (135-145); TOTAL CARBON DIOXIDE 23.4 MMOL/L (24-32); TOTAL PROTEIN 6.1 G/DL (6.4-8.2); eGFR 76 ML/MIN
--- NOTE | 2018-12-21 06:00 | NUR ---
Patient in room CONCETTA 352. I have received report from Ronald and had the opportunity to ask questions and assume patient care.
--- NOTE | 2018-12-21 06:23 | NUR ---
Problems reprioritized. Patient report given, questions answered & plan of care reviewed with AVE Griffin.
[2018-12-21] MEDS: K and/or MAG REPLACEMENT MC SCH (06:42)
[2018-12-21 07:04] VITALS: BP 152/102
[2018-12-21] MEDS: docusate sod 100mg capsule PO SCH ×2 (07:18→20:00)
[2018-12-21] MEDS: levoFLOXACIN-Levaquin 500mg/D5 100 ML IV SCH (07:22)
[2018-12-21] MEDS: enoxaparin 40mg/0.4ml syringe SQ SCH (07:22)
[2018-12-21] MEDS: lactobacillus rhamnosus 10,000 MMU CELLS/CAPSULE PO SCH ×2 (07:22→20:23)
[2018-12-21 10:35] LABS: C DIFF ANTIGEN NEGATIVE (NEGATIVE); C DIFF SPECIMEN=DIARRHEA? ACCEPTABLE; C DIFFICILE TOXINS A&B NEGATIVE (Neg)
[2018-12-21 11:00] VITALS: BP 142/99
--- NOTE | 2018-12-21 16:48 | NUR ---
patient has been refusing orthostatic vitals today. Patient was educated on the purpose of the orthostatic vitals and that it is important we can evaluate her. patient still refused.
[2018-12-21] MEDS: HYDROcodone/acetaminophen 5mg/325mg tablet PO PRN ×2 (16:54→20:23)
[2018-12-21 18:00] VITALS: BP_SYST 125; BP_SYST 131; BP_SYST 145; BP_DIAS 84; BP_DIAS 88; BP_DIAS 92
--- NOTE | 2018-12-21 18:39 | NUR ---
Problems reprioritized. Patient report given, questions answered & plan of care reviewed with AVE Moore.
--- NOTE | 2018-12-21 18:44 | NUR ---
Patient in room [facility]ET[facility] 352. I have received report from Gaby DORADO and had the opportunity to ask questions and assume patient care. Pt currently asleep during report. No signs of distress, will continue to monitor.
[2018-12-22] VITALS: BP 150/94
[2018-12-22] MEDS: metroNIDAZOLE-Flagyl 500mg/NS 100 ML IV SCH ×3 (00:44→15:52)
[2018-12-22] MEDS: normal saline 1000ml 1,000 ML IV SCH ×2 (00:46→12:44)
[2018-12-22] MEDS: HYDROcodone/acetaminophen 5mg/325mg tablet PO PRN ×3 (01:44→19:31)
[2018-12-22 05:02] LABS: BASOPHILS % (AUTO) 0.2 % (0-1); EOSINOPHILS % (AUTO) 0.1 % (0-6); HEMATOCRIT 30.5 % (35.0-45.0); HEMOGLOBIN 10.2 g/dl (12.0-16.0); LYMPHOCYTES # (AUTO) 1.1 X10'3 (1.1-4.8); LYMPHOCYTES % (AUTO) 9.3 % (21-51); MEAN CORPUSCULAR HEMOGLOBIN 30.9 PG (27.0-31.0); MEAN CORPUSCULAR HGB CONC 33.3 g/dL (33.0-36.5); MEAN CORPUSCULAR VOLUME 92.8 FL (78-98); MEAN PLATELET VOLUME 7.8 FL (7.4-10.4); MONOCYTES # (AUTO) 1.1 X10'3 (0-0.9); MONOCYTES % (AUTO) 9.2 % (2-12); NEUTROPHILS # (AUTO) 9.6 X10'3 (1.8-7.7); NEUTROPHILS % (AUTO) 81.2 % (42-75); PLATELET COUNT 224 X10'3 (140-440); RED BLOOD COUNT 3.29 X10'6 (4.20-5.60); RED CELL DISTRIBUTION WIDTH 12.8 % (11.5-14.5); WHITE BLOOD COUNT 11.8 X10'3 (4.5-11.0)
[2018-12-22 05:33] LABS: ALANINE AMINOTRANSFERASE 123 U/L (12-78); ALBUMIN 2.1 G/DL (3.4-5.0); ALBUMIN/GLOBULIN RATIO 0.6 (1.1-1.5); ALKALINE PHOSPHATASE 235 IU/L (46-116); ANION GAP 12 (8-16); ASPARTATE AMINO TRANSFERASE 27 U/L (10-37); BILIRUBIN,TOTAL 0.3 MG/DL (0.1-1.0); BLOOD UREA NITROGEN 7 MG/DL (7-18); BUN/CREATININE RATIO 11.7 (6.6-38.0); CHLORIDE 105 MMOL/L (99-107); GLUCOSE 119 MG/DL (70-104); MAGNESIUM 1.6 MG/DL (1.5-2.4); POTASSIUM 3.8 MMOL/L (3.5-5.1); SODIUM 139 MMOL/L (135-145); TOTAL CARBON DIOXIDE 22.5 MMOL/L (24-32); TOTAL PROTEIN 5.4 G/DL (6.4-8.2); eGFR > 90 ML/MIN
--- NOTE | 2018-12-22 06:00 | NUR ---
Patient in room [facility] 352. I have received report from FAB DORADO and had the opportunity to ask questions and assume patient care.
--- NOTE | 2018-12-22 06:12 | NUR ---
Problems reprioritized. Patient report given, questions answered & plan of care reviewed with Sandra DORADO and Janette DORADO.
--- NOTE | 2018-12-22 06:29 | NUR ---
DID BEDSIDE REPORT WITH FAB. CHECKED ON PT. SHE IS NAUSEOUS. ADMIN ZOFRAN
[2018-12-22] MEDS: ondansetron/PF 4mg/2ml inj IV PRN (06:33)
[2018-12-22] MEDS: docusate sod 100mg capsule PO SCH ×2 (07:07→19:28)
[2018-12-22] MEDS: lactobacillus rhamnosus 10,000 MMU CELLS/CAPSULE PO SCH ×2 (07:08→19:28)
[2018-12-22] MEDS: enoxaparin 40mg/0.4ml syringe SQ SCH (07:08)
[2018-12-22 07:20] VITALS: BP 146/102
[2018-12-22 07:22] VITALS: BP_SYST 137; BP_SYST 146; BP_SYST 166; BP_DIAS 102; BP_DIAS 123; BP_DIAS 87
[2018-12-22] MEDS: levoFLOXACIN-Levaquin 500mg/D5 100 ML IV SCH (07:30)
[2018-12-22] MEDS: K and/or MAG REPLACEMENT MC SCH (07:37)
[2018-12-22 08:14] LABS: HBSAG SCREEN Negative (Negative); HEP A AB, IGM Negative (Negative); HEP B CORE AB, IGM Negative (Negative); HEPATITIS C ANTIBODY <0.1 s/co ratio (0.0-0.9)
[2018-12-22 11:00] VITALS: BP 135/77
--- NOTE | 2018-12-22 17:50 | NUR ---
Student Medication Administration: For this medication-pass time frame, all medication were reviewed, dispensed, administered and documented per hospital policy by Amy Student Nurse.
--- NOTE | 2018-12-22 17:53 | NUR ---
PT HAD 3 WATERY SMALL BROWN BM'S ON MY SHIFT
--- NOTE | 2018-12-22 17:54 | NUR ---
Student documentation: I have reviewed interventions, assessments performed and documented by Amy Student Nurse.
--- NOTE | 2018-12-22 18:28 | NUR ---
Problems reprioritized. Patient report given, questions answered & plan of care reviewed with LYNDA DORADO.
--- NOTE | 2018-12-22 18:45 | NUR ---
Problems reprioritized. Patient report given, questions answered & plan of care reviewed with LYNDA DORADO.
[2018-12-22 20:00] VITALS: BP_SYST 103; BP_SYST 124; BP_SYST 133; BP_SYST 145; BP_DIAS 71; BP_DIAS 77; BP_DIAS 79; BP_DIAS 86
[2018-12-23] VITALS: BP 103/71
[2018-12-23] MEDS: metroNIDAZOLE-Flagyl 500mg/NS 100 ML IV SCH ×2 (01:13→07:49)
[2018-12-23] MEDS: normal saline 1000ml 1,000 ML IV SCH (01:14)
[2018-12-23] MEDS: HYDROcodone/acetaminophen 5mg/325mg tablet PO PRN ×2 (03:25→12:38)
[2018-12-23 05:37] LABS: BASOPHILS % (AUTO) 0.1 % (0-1); EOSINOPHILS % (AUTO) 0.4 % (0-6); HEMATOCRIT 28.9 % (35.0-45.0); HEMOGLOBIN 9.8 g/dl (12.0-16.0); LYMPHOCYTES # (AUTO) 1.1 X10'3 (1.1-4.8); LYMPHOCYTES % (AUTO) 11.7 % (21-51); MEAN CORPUSCULAR HEMOGLOBIN 30.8 PG (27.0-31.0); MEAN CORPUSCULAR HGB CONC 33.8 g/dL (33.0-36.5); MEAN CORPUSCULAR VOLUME 91.1 FL (78-98); MEAN PLATELET VOLUME 7.6 FL (7.4-10.4); MONOCYTES # (AUTO) 0.8 X10'3 (0-0.9); MONOCYTES % (AUTO) 8.9 % (2-12); NEUTROPHILS # (AUTO) 7.1 X10'3 (1.8-7.7); NEUTROPHILS % (AUTO) 78.9 % (42-75); PLATELET COUNT 251 X10'3 (140-440); RED BLOOD COUNT 3.18 X10'6 (4.20-5.60); RED CELL DISTRIBUTION WIDTH 12.8 % (11.5-14.5)
[2018-12-23 06:01] LABS: ALANINE AMINOTRANSFERASE 86 U/L (12-78); ALBUMIN 2.1 G/DL (3.4-5.0); ALBUMIN/GLOBULIN RATIO 0.6 (1.1-1.5); ALKALINE PHOSPHATASE 213 IU/L (46-116); ANION GAP 10 (8-16); ASPARTATE AMINO TRANSFERASE 22 U/L (10-37); BILIRUBIN,TOTAL 0.3 MG/DL (0.1-1.0); BLOOD UREA NITROGEN 4 MG/DL (7-18); BUN/CREATININE RATIO 6.3 (6.6-38.0); CALCIUM 7.7 MG/DL (8.5-10.1); CHLORIDE 107 MMOL/L (99-107); CREATININE 0.64 MG/DL (0.40-0.90); GLUCOSE 103 MG/DL (70-104); MAGNESIUM 1.8 MG/DL (1.5-2.4); POTASSIUM 3.1 MMOL/L (3.5-5.1); SODIUM 141 MMOL/L (135-145); TOTAL CARBON DIOXIDE 24.4 MMOL/L (24-32); TOTAL PROTEIN 5.4 G/DL (6.4-8.2); eGFR > 90 ML/MIN
--- NOTE | 2018-12-23 06:08 | NUR ---
Problems reprioritized. Patient report given, questions answered & plan of care reviewed with AVE Jenkins.
--- NOTE | 2018-12-23 06:20 | NUR ---
Problems reprioritized. Patient report given, questions answered & plan of care reviewed with AVE Savage.
[2018-12-23] MEDS: K and/or MAG REPLACEMENT MC SCH (06:38)
[2018-12-23] MEDS: lactobacillus rhamnosus 10,000 MMU CELLS/CAPSULE PO SCH (07:47)
[2018-12-23] MEDS: docusate sod 100mg capsule PO SCH (07:48)
[2018-12-23] MEDS: enoxaparin 40mg/0.4ml syringe SQ SCH (07:49)
[2018-12-23] MEDS: levoFLOXACIN-Levaquin 500mg/D5 100 ML IV SCH (07:49)
[2018-12-23 07:50] VITALS: BP 125/85
[2018-12-23 11:00] VITALS: BP 129/85
[2018-12-23 12:40] VITALS: BP_SYST 126; BP_SYST 130; BP_SYST 132; BP_DIAS 81; BP_DIAS 84; BP_DIAS 88
[2018-12-23] MEDS ORDERED: METR-159 PO (13:17)
[2018-12-23] MEDS ORDERED: HYDR-3972 PO (13:17)
[2018-12-23] MEDS ORDERED: SENN-162 PO (13:18)
[2018-12-23] MEDS ORDERED: POTA20TA10 PO (16:33)
--- NOTE | 2018-12-23 17:29 | NUR ---
Student documentation: I have reviewed all interventions, assessments performed and documented by Nancy LEE.
--- NOTE | 2018-12-23 17:30 | NUR ---
Student Medication Administration: For this medication-pass time frame, all medication were reviewed, dispensed, administered and documented per hospital policy by Stepan DISLA.
== END 2018-12-23 14:30 | disposition home or self-care (01) | DRG 378 ==
LOC: ER 15:21 → SUR 3N 21:24 → CMPBEDREQ 12-21 05:31
PROVIDERS: ADMIT Hospitalist; ATTEND Internal Medicine
DX: K57.93 Diverticulitis of intestine, part unspecified, without perforation or abscess with bleeding (principal); D62 Acute posthemorrhagic anemia; E86.0 Dehydration; Z60.2 Problems related to living alone; G89.4 Chronic pain syndrome; R74.0 Nonspecific elevation of levels of transaminase and lactic acid dehydrogenase [LDH]; K57.92 Diverticulitis of intestine, part unspecified, without perforation or abscess without bleeding; K59.00 Constipation, unspecified; K75.9 Inflammatory liver disease, unspecified; Z96.612 Presence of left artificial shoulder joint; F12.90 Cannabis use, unspecified, uncomplicated; Z90.710 Acquired absence of both cervix and uterus; Z88.5 Allergy status to narcotic agent; Z90.49 Acquired absence of other specified parts of digestive tract; Z79.899 Other long term (current) drug therapy; Z79.82 Long term (current) use of aspirin
CPT/HCPCS: 36415; 74176; 76700; 80053; 80074; 81001; 83690; 83735; 85025; 87045; 87046; 87081; 87324; 87449; 96365; 96375; 99285; G0378; J0780; J1650; J1956; J2270; J2405; J3490; J7030

== ENCOUNTER 2019-10-06 09:57 | Inpatient (IN) | payer MEDICARE, MEDICAID ==
[2019-09-28 15:48] LABS: BASOPHILS % (AUTO) 0.7 % (0-1); EOSINOPHILS # (AUTO) 0.1 X10'3 (0-0.9); EOSINOPHILS % (AUTO) 1.6 % (0-6); LYMPHOCYTES # (AUTO) 2.5 X10'3 (1.1-4.8); LYMPHOCYTES % (AUTO) 50.2 % (21-51); MEAN CORPUSCULAR HEMOGLOBIN 30.3 PG (27.0-31.0); MEAN CORPUSCULAR HGB CONC 32.7 g/dL (33.0-36.5); MEAN CORPUSCULAR VOLUME 92.8 FL (78-98); MEAN PLATELET VOLUME 7.8 FL (7.4-10.4); MONOCYTES # (AUTO) 0.4 X10'3 (0-0.9); MONOCYTES % (AUTO) 8.1 % (2-12); NEUTROPHILS % (AUTO) 39.4 % (42-75); PRE OP HEMATOCRIT 40.6 % (35.0-45.0); PRE OP HEMOGLOBIN 13.3 g/dL (12.0-16.0); PRE OP PLATELET COUNT 243 X10'3 (140-440); RED BLOOD COUNT 4.38 X10'6 (4.20-5.60); RED CELL DISTRIBUTION WIDTH 13.5 % (11.5-14.5)
[2019-09-28 16:12] LABS: ALBUMIN 3.8 G/DL (3.4-5.0); ALBUMIN/GLOBULIN RATIO 1.2 (1.1-1.5); ALKALINE PHOSPHATASE 86 IU/L (46-116); BLOOD UREA NITROGEN 15 MG/DL (7-18); BUN/CREATININE RATIO 16.5 (6.6-38.0); CALCIUM 9.1 MG/DL (8.5-10.1); CHLORIDE 108 MMOL/L (99-107); CREATININE 0.91 MG/DL (0.40-0.90); PRE OP ALT 31 U/L (30-65); PRE OP ANION GAP 8 (8-16); PRE OP AST 25 U/L (10-37); PRE OP BILIRUB, TOTAL 0.2 MG/DL (0.0-1.0); PRE OP GLUCOSE 91 MG/DL (70-104); PRE OP POTASSIUM 4.3 MMOL/L (3.4-5.1); PRE OP SODIUM 144 MMOL/L (135-145); TOTAL CARBON DIOXIDE 28.3 MMOL/L (24-32); TOTAL PROTEIN 6.9 G/DL (6.4-8.2); eGFR 63 ML/MIN
[2019-10-06] VITALS (12 sets, daily range): BP systolic 114–155; BP diastolic 78–102
[~2019-10-06] VITALS: Ht 170.2 cm; Wt 62.6 kg
[~2019-10-06 09:57] MED LIST changes: -GLUC-219 PO; +IBUP-1984 PO; +OMEP-50 PO; -VIT-11 PO; +famotidine 20mg tablet PO ONE; +ringers solution, lacted 1,000 ML IV SCH
[2019-10-06] MEDS ORDERED: vancomycin/NS 1 GM ADD-VANTAGE 250 ML X 1 DOSE IV ONE (10:20)
[2019-10-06] MEDS ORDERED: ceFAZolin 2gm in dextrose, iso 50 ML IV ONE (10:20)
[2019-10-06] MEDS ORDERED: ringers solution, lacted 1,000 ML IV SCH (11:13)
[2019-10-06] MEDS ORDERED: morphine 2 MG/ML inj. syringe IV PRN (11:15)
[2019-10-06] MEDS ORDERED: hydrALAZINE 20mg/ml inj. IV PRN (11:15)
[2019-10-06] MEDS ORDERED: labetalol 20mg/4ml (5mg/ml) syringe IV PRN (11:15)
[2019-10-06] MEDS ORDERED: morphine 4 MG/ML inj SYRINge IV PRN (11:15)
[2019-10-06] MEDS ORDERED: fentaNYL/PF 50MCG/1 ML 2ML syringe IV PRN ×2 (11:15)
[2019-10-06] MEDS ORDERED: ondansetron/PF 4mg/2ml inj IV PRN (11:15)
[2019-10-06] MEDS ORDERED: methylPREDNISolone sod succ 125mg/2ml vial ONE (12:07)
[2019-10-06] MEDS ORDERED: triamcinolone acetonide 40mg/ml inj ONE (12:07)
[2019-10-06] MEDS ORDERED: BUPIVAcaine/PF 2.5mg/ml (0.25%) 10ml vial ONE (12:08)
[2019-10-06] MEDS ORDERED: BUPIVAcaine/PF 2.5 mg/ml (0.25%) 30ml vial ONE (12:08)
[2019-10-06] MEDS ORDERED: phenylephrine 10mg/ml inj. ONE (12:18)
[2019-10-06] MEDS ORDERED: sevoflurane 250ml liquid IH ONE (12:18)
[2019-10-06] MEDS ORDERED: dexamethasone sod phosphate 10mg/ml inj ONE (12:18)
[2019-10-06] MEDS ORDERED: propofol inj 20 ML IV ONE (12:20)
[2019-10-06] MEDS ORDERED: fentaNYL/PF 50MCG/1 ML 2ML syringe ONE (12:20)
[2019-10-06] MEDS ORDERED: midazolam 2 mg/2 ml injection ONE (12:20)
[2019-10-06] MEDS ORDERED: LIDOcaine 2% (20mg/ml) 5ml vial ONE (12:21)
[2019-10-06] MEDS ORDERED: ROPIVAcaine 0.5% (5mg/ml) 30ml vial ONE (12:22)
[2019-10-06] MEDS ORDERED: ondansetron/PF 4mg/2ml inj ONE (12:43)
--- NOTE | 2019-10-06 13:12 | NUR ---
Received from OR via [facility], accompanied by Anesthesiologist DR VASQUEZ and report given by Anesthesiologist. PT VERY DROWSY, NO S/S OF DISTRESS/DISCOMFORT, LEFT ARM W/BIAS DRSG COVERING INCISION/SPLINT FROM FINGERS TO ELBOW, CDI, LEFT ARM IN SLING. Addendum: 10/06/19 at 1423 by Sylvia Andrade RN Amended: Links added.
--- NOTE | 2019-10-06 15:12 | NUR ---
PT ABLE TO AMBULATE AND IS COMFORTABLE, D/C INSTRUCTIONS GIVEN AND GONE OVER W/PT WHO VERBALIZED UNDERSTANDING, PT D/CD TO HOME VIA W/C TO PRIVATE VEHICLE W/O INCIDENT. Addendum: 10/06/19 at 1522 by Sylvia Andrade RN Amended: Links added.
== END 2019-10-06 15:12 | disposition home or self-care (01) | DRG 42 ==
LOC: PAS IN 09:57 → EDSTATUS 11:45
PROVIDERS: ADMIT Orthopaedic Surgery; ATTEND Orthopaedic Surgery
PROC: 01N50ZZ Release Median Nerve, Open Approach (ICD-10-PCS; 2019-10-06)
PROC: 3E0T3BZ Introduction of Anesthetic Agent into Peripheral Nerves and Plexi, Percutaneous Approach (ICD-10-PCS; 2019-10-06)
PROC: 01N40ZZ Release Ulnar Nerve, Open Approach (ICD-10-PCS; principal; 2019-10-06 12:18)
DX: G56.02 Carpal tunnel syndrome, left upper limb (principal); M75.02 Adhesive capsulitis of left shoulder; Z96.612 Presence of left artificial shoulder joint; M54.2 Cervicalgia; J44.9 Chronic obstructive pulmonary disease, unspecified; G89.29 Other chronic pain; I10 Essential (primary) hypertension; K21.9 Gastro-esophageal reflux disease without esophagitis; M75.42 Impingement syndrome of left shoulder; G57.12 Meralgia paresthetica, left lower limb; F17.200 Nicotine dependence, unspecified, uncomplicated; Z96.643 Presence of artificial hip joint, bilateral; Z96.611 Presence of right artificial shoulder joint; Z88.5 Allergy status to narcotic agent; Z90.49 Acquired absence of other specified parts of digestive tract; Z90.710 Acquired absence of both cervix and uterus; Z79.899 Other long term (current) drug therapy; Z79.82 Long term (current) use of aspirin; Z79.891 Long term (current) use of opiate analgesic
CPT/HCPCS: 36415; 80053; 82948; 85025; 93005; A4215; A4565; A4618; A6222; A6449; A7000; J1100; J2001; J2250; J2370; J2405; J2704; J2795; J2930; J3010; J3301; J3370; J3490; J7120

== ENCOUNTER 2020-04-25 13:53 | Outpatient (CLI) | payer MEDICARE, MEDICAID ==
[~2020-04-25 13:53] MED LIST changes: -famotidine 20mg tablet PO ONE; -ringers solution, lacted 1,000 ML IV SCH
== END 2020-04-25 23:59 | disposition home or self-care (01) ==
LOC: CARD DIAG 13:53
PROVIDERS: ATTEND Family Medicine
DX: I08.0 Rheumatic disorders of both mitral and aortic valves (principal); Z01.818 Encounter for other preprocedural examination
CPT/HCPCS: 93306

== ENCOUNTER 2021-06-11 10:24 | Emergency (ER) | payer MEDICARE, MEDICAID ==
[~2021-06-11] VITALS: Ht 170.2 cm; Wt 65.0 kg
[~2021-06-11 10:24] MED LIST changes: +ASPI-1 PO; -ASPI81TA44 PO; +HYDR-3965 PO; -IBUP-1984 PO; -OMEP-50 PO
[2021-06-11 10:31] VITALS: BP 124/88
[2021-06-11 10:59] LABS: BASOPHILS % (AUTO) 0.6 % (0-1); EOSINOPHILS # (AUTO) 0.1 X10'3 (0-0.9); EOSINOPHILS % (AUTO) 1.8 % (0-6); LYMPHOCYTES # (AUTO) 2.1 X10'3 (1.1-4.8); LYMPHOCYTES % (AUTO) 42.6 % (21-51); MEAN CORPUSCULAR HEMOGLOBIN 30.8 PG (27.0-31.0); MEAN CORPUSCULAR HGB CONC 33.4 g/dL (33.0-36.5); MEAN CORPUSCULAR VOLUME 92.2 FL (78-98); MEAN PLATELET VOLUME 7.4 FL (7.4-10.4); MONOCYTES # (AUTO) 0.4 X10'3 (0-0.9); MONOCYTES % (AUTO) 8.2 % (2-12); NEUTROPHILS # (AUTO) 2.3 X10'3 (1.8-7.7); NEUTROPHILS % (AUTO) 46.8 % (42-75); PLATELET COUNT 285 X10'3 (140-440); RED BLOOD COUNT 4.88 X10'6 (4.20-5.60); RED CELL DISTRIBUTION WIDTH 13.2 % (11.5-14.5); WHITE BLOOD COUNT 4.9 X10'3 (4.5-11.0)
[2021-06-11 11:13] LABS: ALANINE AMINOTRANSFERASE 22 U/L (12-78); ALBUMIN 3.7 G/DL (3.4-5.0); ALBUMIN/GLOBULIN RATIO 1.1 (1.1-1.5); ALKALINE PHOSPHATASE 95 IU/L (46-116); ANION GAP 8 (8-16); ASPARTATE AMINO TRANSFERASE 19 U/L (10-37); BILIRUBIN,TOTAL 0.3 MG/DL (0.1-1.0); BLOOD UREA NITROGEN 16 MG/DL (7-18); CALCIUM 8.9 MG/DL (8.5-10.1); CHLORIDE 107 MMOL/L (99-107); CREATININE 0.89 MG/DL (0.40-0.90); GLUCOSE 101 MG/DL (70-104); LIPASE 108 U/L (73-393); POTASSIUM 4.4 MMOL/L (3.5-5.1); SODIUM 143 MMOL/L (135-145); TOTAL PROTEIN 7.1 G/DL (6.4-8.2); eGFR 65 ML/MIN
[2021-06-11 11:34] LABS: CLARITY,URINE CLEAR (Clear); COLOR,URINE YELLOW (Yellow); GLUCOSE, URINE NEGATIVE (Neg); KETONES,URINE NEGATIVE (Neg); LEUKOCYTE ESTERASE ,URINE NEGATIVE (Neg); NITRITES, URINE NEGATIVE (Neg); OCCULT BLOOD,URINE NEGATIVE (Neg); PROTEIN,URINE NEGATIVE (Neg); UROBILINOGEN,URINE 0.2 E.U/dL (0.2-1.0)
[2021-06-11 11:35] LABS: UA COLLECTION TYPE CLN CATCH MIDSTREAM
[2021-06-11] MEDS ORDERED: CYCL-1 PO (11:52)
== END 2021-06-11 11:55 | disposition home or self-care (01) ==
LOC: ER 10:25
DX: R10.84 Generalized abdominal pain (principal); R11.2 Nausea with vomiting, unspecified; M54.50 Low back pain, unspecified; G89.29 Other chronic pain; F12.90 Cannabis use, unspecified, uncomplicated; F19.90 Other psychoactive substance use, unspecified, uncomplicated; Z90.49 Acquired absence of other specified parts of digestive tract; Z90.710 Acquired absence of both cervix and uterus; Z98.890 Other specified postprocedural states; Z60.2 Problems related to living alone; Z88.5 Allergy status to narcotic agent; Z79.82 Long term (current) use of aspirin; Z79.899 Other long term (current) drug therapy
CPT/HCPCS: 36415; 80053; 81003; 83690; 85025; 99283

== ENCOUNTER 2024-02-23 07:20 | Inpatient (IN) | payer MEDICARE, MEDICAID ==
[2024-02-16 13:58] LABS: BILIRUBIN,URINE NEGATIVE (Neg); CLARITY,URINE CLEAR (Clear); COLOR,URINE YELLOW (Yellow); GLUCOSE, URINE NEGATIVE (Neg); KETONES,URINE NEGATIVE (Neg); LEUKOCYTE ESTERASE ,URINE NEGATIVE (Neg); NITRITES, URINE NEGATIVE (Neg); OCCULT BLOOD,URINE TRACE-INTACT (Neg); PROTEIN,URINE NEGATIVE (Neg); UROBILINOGEN,URINE 0.2 E.U/dL (0.2-1.0)
[2024-02-16 14:00] LABS: UA COLLECTION TYPE CLN CATCH MIDSTREAM
[2024-02-16 14:01] LABS: BASOPHILS % (AUTO) 0.8 % (0-1); EOSINOPHILS # (AUTO) 0.1 X10'3 (0-0.9); EOSINOPHILS % (AUTO) 1.2 % (0-6); LYMPHOCYTES # (AUTO) 2.4 X10'3 (1.1-4.8); LYMPHOCYTES % (AUTO) 39.8 % (21-51); MEAN CORPUSCULAR HEMOGLOBIN 31.9 PG (27.0-31.0); MEAN CORPUSCULAR VOLUME 93.6 FL (78-98); MEAN PLATELET VOLUME 7.4 FL (7.4-10.4); MONOCYTES # (AUTO) 0.5 X10'3 (0-0.9); MONOCYTES % (AUTO) 8.6 % (2-12); NEUTROPHILS # (AUTO) 2.9 X10'3 (1.8-7.7); NEUTROPHILS % (AUTO) 49.6 % (42-75); PRE OP HEMATOCRIT 45.5 % (35.0-45.0); PRE OP HEMOGLOBIN 15.5 g/dL (12.0-16.0); PRE OP PLATELET COUNT 263 X10'3 (140-440); PRE OP WHITE BLOOD COUNT 5.9 10'3 (4.8-10.8); RED BLOOD COUNT 4.87 X10'6 (4.20-5.60); RED CELL DISTRIBUTION WIDTH 12.7 % (11.5-14.5)
[2024-02-16 14:04] LABS: AMORPHOUS URATES 1+; BACTERIA,URINE NONE SEEN /HPF (Neg); RBC,URINE 0-2 /HPF (0-2); SQUAMOUS EPITHELIAL CELL,UR FEW /LPF (FEW); WBC,URINE NONE SEEN /HPF (0-4)
[2024-02-16 14:35] LABS: ALBUMIN/GLOBULIN RATIO 1.2 (1.1-1.5); ALKALINE PHOSPHATASE 113 IU/L (46-116); BLOOD UREA NITROGEN 20 MG/DL (7-18); BUN/CREATININE RATIO 22.2 (10.0-20.0); CALCIUM 8.7 MG/DL (8.5-10.1); CHLORIDE 106 MMOL/L (99-107); PRE OP ALT 22 U/L (30-65); PRE OP ANION GAP 4 (8-16); PRE OP AST 24 U/L (10-37); PRE OP BILIRUB, TOTAL 0.2 MG/DL (0.0-1.0); PRE OP GLUCOSE 90 MG/DL (70-104); PRE OP SODIUM 141 MMOL/L (135-145); TOTAL CARBON DIOXIDE 30.9 MMOL/L (24-32); TOTAL PROTEIN 7.4 G/DL (6.4-8.2); eGFR 63 ML/MIN
[~2024-02-23] VITALS: Ht 170.2 cm; Wt 68.4 kg
[2024-02-23] MEDS: ceFAZolin 2gm in dextrose, iso 50 ML IV ONE (05:30)
[2024-02-23] MEDS: tranexamic acid 1gm/0.7% sal. 100 ML IV ONE (05:30)
[~2024-02-23 07:20] MED LIST changes: -ASPI-1 PO; +ATOR10TA70 PO; -HYDR-3965 PO; +HYDR-3973 PO
[2024-02-23 07:27] VITALS: BP 130/80; PULSE 79; RESP 16; TEMP 97; O2SAT 98
[2024-02-23] MEDS ORDERED: tobramycin 40mg/ml inj ONE (07:40)
[2024-02-23] MEDS ORDERED: methylene blue (5mg/ml) 50mg/10ml ampul IV ONE (07:40)
[2024-02-23] MEDS ORDERED: vancomycin 1,000mg inj ONE (07:40)
[2024-02-23] MEDS ORDERED: tranexamic acid 100mg/ml inj. ONE (07:40)
[2024-02-23] MEDS ORDERED: gelatin sponge, absorbable (Gelfoam 100) sponge TP ONE (07:41)
[2024-02-23] MEDS ORDERED: Thrombin (Bovine) 5,000 unit vial TP ONE (07:41)
[2024-02-23] MEDS: ringers solution, lacted 1,000 ML IV SCH (08:05)
[2024-02-23] MEDS: famotidine 20mg tablet PO ONE (08:05)
[2024-02-23] MEDS ORDERED: proCHLORperazine 10 MG/2 ml inj IV PRN (09:00)
[2024-02-23] MEDS ORDERED: ondansetron/PF 4mg/2ml inj IV PRN (09:00)
[2024-02-23] MEDS ORDERED: ringers solution, lacted 1,000 ML IV SCH (09:00)
[2024-02-23] MEDS ORDERED: enalaprilat dihydrate 2.5mg/2ml vial IV PRN (09:00)
[2024-02-23] MEDS ORDERED: morphine 2 MG/ML inj. syringe IV PRN (09:00)
[2024-02-23] MEDS ORDERED: labetalol 20mg/4ml (5mg/ml) syringe IV PRN (09:00)
[2024-02-23] MEDS ORDERED: morphine 4 MG/ML inj SYRINge IV PRN (09:00)
[2024-02-23] MEDS ORDERED: meperidine/PF 25mg/ml syringe IV PRN ×3 (09:00)
[2024-02-29 10:05] LABS: BILIRUBIN,URINE NEGATIVE (Neg); CLARITY,URINE SLIGHTLY CLOUDY (Clear); COLOR,URINE YELLOW (Yellow); GLUCOSE, URINE NEGATIVE (Neg); KETONES,URINE NEGATIVE (Neg); LEUKOCYTE ESTERASE ,URINE MODERATE (Neg); NITRITES, URINE NEGATIVE (Neg); OCCULT BLOOD,URINE TRACE-INTACT (Neg); PROTEIN,URINE NEGATIVE (Neg); UROBILINOGEN,URINE 0.2 E.U/dL (0.2-1.0)
[2024-02-29 10:08] LABS: BASOPHILS % (AUTO) 0.6 % (0-1); EOSINOPHILS # (AUTO) 0.1 X10'3 (0-0.9); EOSINOPHILS % (AUTO) 1.3 % (0-6); LYMPHOCYTES # (AUTO) 1.9 X10'3 (1.1-4.8); LYMPHOCYTES % (AUTO) 34.8 % (21-51); MEAN CORPUSCULAR HEMOGLOBIN 31.4 PG (27.0-31.0); MEAN CORPUSCULAR HGB CONC 33.5 g/dL (33.0-36.5); MEAN CORPUSCULAR VOLUME 93.7 FL (78-98); MEAN PLATELET VOLUME 7.1 FL (7.4-10.4); MONOCYTES # (AUTO) 0.4 X10'3 (0-0.9); MONOCYTES % (AUTO) 7.1 % (2-12); NEUTROPHILS % (AUTO) 56.2 % (42-75); PRE OP HEMATOCRIT 43.5 % (35.0-45.0); PRE OP HEMOGLOBIN 14.6 g/dL (12.0-16.0); PRE OP PLATELET COUNT 274 X10'3 (140-440); PRE OP WHITE BLOOD COUNT 5.3 10'3 (4.8-10.8); RED BLOOD COUNT 4.64 X10'6 (4.20-5.60); RED CELL DISTRIBUTION WIDTH 12.5 % (11.5-14.5)
[2024-02-29 10:20] LABS: PRE OP PROTIME 10.3 SECONDS (9.0-12.0)
[2024-02-29 10:23] LABS: UA COLLECTION TYPE CLN CATCH MIDSTREAM
[2024-02-29 10:27] LABS: SQUAMOUS EPITHELIAL CELL,UR MANY /LPF (FEW); WBC,URINE 30-50 /HPF (0-4)
[2024-02-29 10:29] LABS: BACTERIA,URINE 2+ /HPF (Neg); RBC,URINE NONE SEEN /HPF (0-2)
[2024-02-29 10:34] LABS: ALBUMIN 3.5 G/DL (3.4-5.0); ALKALINE PHOSPHATASE 114 IU/L (46-116); BLOOD UREA NITROGEN 19 MG/DL (7-18); CALCIUM 8.6 MG/DL (8.5-10.1); CHLORIDE 105 MMOL/L (99-107); PRE OP ALT 25 U/L (30-65); PRE OP ANION GAP 7 (8-16); PRE OP AST 20 U/L (10-37); PRE OP BILIRUB, TOTAL 0.5 MG/DL (0.0-1.0); PRE OP GLUCOSE 91 MG/DL (70-104); PRE OP SODIUM 140 MMOL/L (135-145); TOTAL PROTEIN 7.1 G/DL (6.4-8.2); eCRCL 56 ML/MIN; eGFR 56 ML/MIN
[2024-03-08] VITALS (15 sets, daily range): BP systolic 104–126; BP diastolic 57–80; PULSE 64–86; RESP 13–21; TEMP 97.6–97.9; O2SAT 93–100
[2024-03-08] MEDS: tranexamic acid 1gm/0.7% sal. 100 ML IV ONE (05:30)
[2024-03-08] MEDS: ceFAZolin 2gm in dextrose, iso 50 ML IV ONE (05:30)
[2024-03-08] MEDS: famotidine 20mg tablet PO ONE (11:59)
[2024-03-08] MEDS: ringers solution, lacted 1,000 ML IV SCH (12:00)
[2024-03-08] MEDS ORDERED: ondansetron/PF 4mg/2ml inj IV PRN ×2 (13:20→17:25)
[2024-03-08] MEDS ORDERED: bisacodyl 10mg suppository rectal RC PRN (13:20)
[2024-03-08] MEDS ORDERED: acetaminophen 325mg tablet PO PRN (13:20)
[2024-03-08] MEDS ORDERED: HYDROcodone/acetaminophen 5mg/325mg tablet PO PRN (13:20)
[2024-03-08] MEDS: potassium cl 20mEq in 1/2 NS 1,000 ML IV SCH (13:20)
[2024-03-08] MEDS ORDERED: naloxone 0.4 mg/ml inj IV PRN (13:20)
[2024-03-08] MEDS ORDERED: diphenhydrAMINE 25mg capsule PO PRN (13:20)
[2024-03-08] MEDS ORDERED: vancomycin 1,000mg inj ONE (13:51)
[2024-03-08] MEDS ORDERED: gelatin sponge, absorbable (Gelfoam 100) sponge TP ONE (14:24)
[2024-03-08] MEDS ORDERED: tobramycin sulfate 1.2gm vial ONE (14:24)
[2024-03-08] MEDS ORDERED: fentaNYL/PF 50MCG/1 ML 2ML syringe ONE (16:07)
[2024-03-08] MEDS ORDERED: midazolam 1 mg/ML 2ml injection ONE (16:08)
[2024-03-08] MEDS ORDERED: sevoflurane 250ml liquid IH ONE (16:08)
[2024-03-08] MEDS ORDERED: ringers solution, lacted 1,000 ML IV SCH (17:25)
[2024-03-08] MEDS ORDERED: meperidine/PF 25mg/ml syringe IV PRN ×3 (17:25)
[2024-03-08] MEDS ORDERED: morphine 4 MG/ML inj SYRINge IV PRN (17:25)
[2024-03-08] MEDS ORDERED: proCHLORperazine 10 MG/2 ml inj IV PRN (17:25)
[2024-03-08] MEDS ORDERED: labetalol 20mg/4ml (5mg/ml) syringe IV PRN (17:25)
[2024-03-08] MEDS ORDERED: morphine 2 MG/ML inj. syringe IV PRN (17:25)
[2024-03-08] MEDS ORDERED: ROPIVAcaine 0.5% (5mg/ml) 30ml vial ONE (17:42)
[2024-03-08] MEDS ORDERED: propofol inj 20 ML IV ONE (17:42)
[2024-03-08] MEDS ORDERED: rocuronium 10mg/ml inj IV ONE ×2 (17:43→18:35)
[2024-03-08] MEDS ORDERED: ePHEDrine 50MG/ML INJ. ONE (17:44)
[2024-03-08] MEDS ORDERED: dexamethasone sod phosphate 4mg/ml inj. ONE (17:45)
[2024-03-08] MEDS: methylene blue (5mg/ml) 50mg/10ml ampul IV ONE (18:17)
[2024-03-08] MEDS ORDERED: ondansetron/PF 4mg/2ml inj ONE (18:35)
[2024-03-08] MEDS ORDERED: neostigmine methylsulfate 1 MG/ML 10ml vial ONE (18:35)
[2024-03-08] MEDS ORDERED: glycopyrrolate 0.2mg/ml inj ONE (18:35)
[2024-03-09] VITALS (8 sets, daily range): BP systolic 101–150; BP diastolic 63–91; PULSE 66–87; RESP 13–18; TEMP 97.3–98.3; O2SAT 94–99
[2024-03-09] MEDS: ceFAZolin 2gm in dextrose, iso 50 ML IV SCH (00:39)
[2024-03-09 04:57] LABS: BASOPHILS % (AUTO) 0.1 % (0-1); EOSINOPHILS % (AUTO) 0 % (0-6); HEMATOCRIT 37.9 % (35.0-45.0); HEMOGLOBIN 12.7 g/dl (12.0-16.0); LYMPHOCYTES # (AUTO) 0.8 X10'3 (1.1-4.8); LYMPHOCYTES % (AUTO) 11.6 % (21-51); MEAN CORPUSCULAR HEMOGLOBIN 31.4 PG (27.0-31.0); MEAN CORPUSCULAR HGB CONC 33.5 g/dL (33.0-36.5); MEAN CORPUSCULAR VOLUME 93.7 FL (78-98); MEAN PLATELET VOLUME 7.5 FL (7.4-10.4); MONOCYTES # (AUTO) 0.2 X10'3 (0-0.9); MONOCYTES % (AUTO) 3.2 % (2-12); NEUTROPHILS # (AUTO) 6.1 X10'3 (1.8-7.7); NEUTROPHILS % (AUTO) 85.1 % (42-75); PLATELET COUNT 278 X10'3 (140-440); RED BLOOD COUNT 4.05 X10'6 (4.20-5.60); RED CELL DISTRIBUTION WIDTH 12.4 % (11.5-14.5); WHITE BLOOD COUNT 7.2 X10'3 (4.5-11.0)
[2024-03-09 05:10] LABS: ALANINE AMINOTRANSFERASE 237 U/L (12-78); ALBUMIN/GLOBULIN RATIO 0.9 (1.1-1.5); ALKALINE PHOSPHATASE 174 IU/L (46-116); ANION GAP 9 (8-16); ASPARTATE AMINO TRANSFERASE 293 U/L (10-37); BILIRUBIN,TOTAL 0.3 MG/DL (0.1-1.0); BLOOD UREA NITROGEN 14 MG/DL (7-18); BUN/CREATININE RATIO 14.6 (10.0-20.0); CALCIUM 8.3 MG/DL (8.5-10.1); CHLORIDE 109 MMOL/L (99-107); CREATININE 0.96 MG/DL (0.40-0.90); GLUCOSE 144 MG/DL (70-104); POTASSIUM 4.5 MMOL/L (3.5-5.1); SODIUM 142 MMOL/L (135-145); TOTAL CARBON DIOXIDE 24.2 MMOL/L (24-32); TOTAL PROTEIN 6.2 G/DL (6.4-8.2); eCRCL 58 ML/MIN; eGFR 59 ML/MIN
[2024-03-09] MEDS: HYDROcodone/acetaminophen 5mg/325mg tablet PO PRN (06:00)
[2024-03-09] MEDS: atorvastatin 10mg tablet PO SCH (08:06)
[2024-03-09] MEDS: aspirin 325mg tablet PO SCH (08:06)
[2024-03-09 11:55] LABS: ALANINE AMINOTRANSFERASE 195 U/L (12-78); ALBUMIN 3.1 G/DL (3.4-5.0); ALKALINE PHOSPHATASE 163 IU/L (46-116); ANION GAP 7 (8-16); ASPARTATE AMINO TRANSFERASE 181 U/L (10-37); BILIRUBIN,TOTAL 0.2 MG/DL (0.1-1.0); BLOOD UREA NITROGEN 16 MG/DL (7-18); BUN/CREATININE RATIO 16.2 (10.0-20.0); CALCIUM 8.3 MG/DL (8.5-10.1); CHLORIDE 106 MMOL/L (99-107); CREATININE 0.99 MG/DL (0.40-0.90); GLUCOSE 107 MG/DL (70-104); POTASSIUM 4.6 MMOL/L (3.5-5.1); SODIUM 141 MMOL/L (135-145); TOTAL CARBON DIOXIDE 27.8 MMOL/L (24-32); TOTAL PROTEIN 6.3 G/DL (6.4-8.2); eCRCL 57 ML/MIN; eGFR 57 ML/MIN
[2024-03-09] MEDS: magnesium hydroxide 30ml (MOM) UD suspension PO PRN (14:39)
[2024-03-09] MEDS: morphine 4 MG/ML inj SYRINge IV PRN (19:04)
[2024-03-09] MEDS: DOXYCYCLINE 100MG CAPSULE PO SCH (19:07)
[2024-03-10 06:00] VITALS: BP 150/87; PULSE 92; RESP 15; TEMP 98.2; O2SAT 93
[2024-03-10 06:09] LABS: BASOPHILS % (AUTO) 0.3 % (0-1); EOSINOPHILS % (AUTO) 0.4 % (0-6); HEMATOCRIT 35.9 % (35.0-45.0); HEMOGLOBIN 12.3 g/dl (12.0-16.0); LYMPHOCYTES # (AUTO) 1.2 X10'3 (1.1-4.8); LYMPHOCYTES % (AUTO) 22.4 % (21-51); MEAN CORPUSCULAR HEMOGLOBIN 31.9 PG (27.0-31.0); MEAN CORPUSCULAR HGB CONC 34.2 g/dL (33.0-36.5); MEAN CORPUSCULAR VOLUME 93.2 FL (78-98); MEAN PLATELET VOLUME 7.4 FL (7.4-10.4); MONOCYTES # (AUTO) 0.4 X10'3 (0-0.9); MONOCYTES % (AUTO) 8.2 % (2-12); NEUTROPHILS # (AUTO) 3.7 X10'3 (1.8-7.7); NEUTROPHILS % (AUTO) 68.7 % (42-75); PLATELET COUNT 241 X10'3 (140-440); RED BLOOD COUNT 3.86 X10'6 (4.20-5.60); RED CELL DISTRIBUTION WIDTH 12.5 % (11.5-14.5); WHITE BLOOD COUNT 5.4 X10'3 (4.5-11.0)
[2024-03-10 06:53] LABS: ALANINE AMINOTRANSFERASE 726 U/L (12-78); ALBUMIN/GLOBULIN RATIO 0.9 (1.1-1.5); ALKALINE PHOSPHATASE 332 IU/L (46-116); ANION GAP 9 (8-16); BILIRUBIN,TOTAL 1.1 MG/DL (0.1-1.0); BLOOD UREA NITROGEN 12 MG/DL (7-18); BUN/CREATININE RATIO 16.2 (10.0-20.0); CALCIUM 7.9 MG/DL (8.5-10.1); CHLORIDE 105 MMOL/L (99-107); CREATININE 0.74 MG/DL (0.40-0.90); GLUCOSE 118 MG/DL (70-104); POTASSIUM 3.9 MMOL/L (3.5-5.1); SODIUM 139 MMOL/L (135-145); TOTAL CARBON DIOXIDE 25.2 MMOL/L (24-32); TOTAL PROTEIN 6.4 G/DL (6.4-8.2); eCRCL 76 ML/MIN; eGFR 79 ML/MIN
[2024-03-10 06:58] LABS: ASPARTATE AMINO TRANSFERASE 1300 U/L (10-37)
[2024-03-10] MEDS: amLODIPine 5mg tablet PO SCH (08:05)
[2024-03-10 10:00] VITALS: BP 158/91; PULSE 72; RESP 15; RESP 16; TEMP 98.2; O2SAT 93; O2SAT 94
[2024-03-10] MEDS: oxyCODONE IR 5mg (immed. release) tablet PO PRN (12:59)
[2024-03-10] MEDS: normal saline 1000ml 1,000 ML IV ONE ×2 (13:06→16:45)
[2024-03-10 13:56] VITALS: BP 144/94; PULSE 85; RESP 17; TEMP 99.5; O2SAT 94
[2024-03-10 13:57] VITALS: RESP 17; O2SAT 94
[2024-03-10 18:00] VITALS: BP 151/89; PULSE 94; RESP 18; TEMP 98.9; O2SAT 95
[2024-03-10] MEDS: normal saline 1000ml 1,000 ML IV SCH (19:14)
[2024-03-10 22:00] VITALS: BP 146/86; PULSE 95; RESP 17; TEMP 98.4; O2SAT 96
[2024-03-11 06:38] LABS: BASOPHILS % (AUTO) 0.4 % (0-1); EOSINOPHILS % (AUTO) 0.8 % (0-6); HEMATOCRIT 36.6 % (35.0-45.0); HEMOGLOBIN 12.6 g/dl (12.0-16.0); LYMPHOCYTES # (AUTO) 1.8 X10'3 (1.1-4.8); LYMPHOCYTES % (AUTO) 30.9 % (21-51); MEAN CORPUSCULAR HEMOGLOBIN 31.9 PG (27.0-31.0); MEAN CORPUSCULAR HGB CONC 34.4 g/dL (33.0-36.5); MEAN CORPUSCULAR VOLUME 92.7 FL (78-98); MEAN PLATELET VOLUME 7.3 FL (7.4-10.4); MONOCYTES # (AUTO) 0.6 X10'3 (0-0.9); NEUTROPHILS # (AUTO) 3.4 X10'3 (1.8-7.7); NEUTROPHILS % (AUTO) 57.9 % (42-75); PLATELET COUNT 224 X10'3 (140-440); RED BLOOD COUNT 3.95 X10'6 (4.20-5.60); RED CELL DISTRIBUTION WIDTH 12.7 % (11.5-14.5); WHITE BLOOD COUNT 5.8 X10'3 (4.5-11.0)
[2024-03-11 06:42] VITALS: BP 154/92; PULSE 88; RESP 13; TEMP 97.9; O2SAT 95
[2024-03-11 06:53] LABS: ALANINE AMINOTRANSFERASE 508 U/L (12-78); ALBUMIN 2.7 G/DL (3.4-5.0); ALBUMIN/GLOBULIN RATIO 0.8 (1.1-1.5); ALKALINE PHOSPHATASE 399 IU/L (46-116); ANION GAP 7 (8-16); ASPARTATE AMINO TRANSFERASE 304 U/L (10-37); BILIRUBIN,TOTAL 0.7 MG/DL (0.1-1.0); BLOOD UREA NITROGEN 9 MG/DL (7-18); BUN/CREATININE RATIO 13.6 (10.0-20.0); CALCIUM 8.5 MG/DL (8.5-10.1); CHLORIDE 107 MMOL/L (99-107); CREATININE 0.66 MG/DL (0.40-0.90); GLUCOSE 111 MG/DL (70-104); POTASSIUM 3.9 MMOL/L (3.5-5.1); SODIUM 139 MMOL/L (135-145); TOTAL CARBON DIOXIDE 25.4 MMOL/L (24-32); TOTAL PROTEIN 6.3 G/DL (6.4-8.2); eCRCL 85 ML/MIN; eGFR 90 ML/MIN
[2024-03-11 08:20] VITALS: RESP 13; O2SAT 95
[2024-03-11 10:00] VITALS: BP 114/77; PULSE 92; RESP 14; TEMP 97.5; O2SAT 96
[2024-03-11 11:08] VITALS: RESP 16
== END 2024-03-11 13:50 | disposition home health service (06) | DRG 496 ==
LOC: PAS IN 07:20 → UNDOADMIN 07:20 → PAS IN 03-08 10:53 → ORTHO 4S 03-08 20:19
PROVIDERS: ADMIT Specialist; ATTEND Specialist
PROC: 0RPJ0JZ Removal of Synthetic Substitute from Right Shoulder Joint, Open Approach (ICD-10-PCS; 2024-03-08)
PROC: 0RHJ08Z Insertion of Spacer into Right Shoulder Joint, Open Approach (ICD-10-PCS; principal; 2024-03-08 16:08)
DX: T84.59XA Infection and inflammatory reaction due to other internal joint prosthesis, initial encounter (principal); N17.9 Acute kidney failure, unspecified; M75.101 Unspecified rotator cuff tear or rupture of right shoulder, not specified as traumatic; I10 Essential (primary) hypertension; E78.5 Hyperlipidemia, unspecified; R74.01 Elevation of levels of liver transaminase levels; K57.30 Diverticulosis of large intestine without perforation or abscess without bleeding; Z96.643 Presence of artificial hip joint, bilateral; R79.89 Other specified abnormal findings of blood chemistry; E78.00 Pure hypercholesterolemia, unspecified; X58.XXXA Exposure to other specified factors, initial encounter; Z96.612 Presence of left artificial shoulder joint; Z96.611 Presence of right artificial shoulder joint; Y83.8 Other surgical procedures as the cause of abnormal reaction of the patient, or of later complication, without mention of misadventure at the time of the procedure; Y92.89 Other specified places as the place of occurrence of the external cause; Z87.891 Personal history of nicotine dependence
CPT/HCPCS: 36415; 71046; 73030; 74176; 76000; 76700; 80053; 81001; 82948; 85025; 85610; 85730; 86705; 86706; 86709; 86803; 86870; 86885; 86900; 86901; 86902; 86905; 86922; 87070; 87075; 87081; 87088; 87340; 87522; 93005; 97110; 97161; 97530; A4565; A4618; A6253; A6258; A6402; A6449; A6455; A7000; C1713; C1776; G0378; J0690; J0735; J1100; J2250; J2270; J2405; J2704; J2710; J2795; J3010; J3260; J3370; J3480; J3490; J7030; J7120; Q9968

== ENCOUNTER 2025-01-05 13:30 | Outpatient (CLI) | payer MEDICARE, MEDICAID ==
[~2025-01-05 13:30] MED LIST changes: -HYDR-3973 PO
--- NOTE | 2025-01-05 14:34 | RADIOLOGY REPORT ---
Procedure: CT CT CHEST LOW DOSE Reason for study/Clinical History: TOBACCO USE COMPARISON: None TECHNIQUE: Multidetector CT of the chest was performed from the lung apices to the upper abdomen without the use of intravenous contract. Axial, coronal and sagittal multiplanar reformats were performed. Radiation Dose Information: CT Dose: CTDI volume is 1.9 mGy. Dose-length product is 73.4 mGy*cm The dose indicators for CT are the volume Computed Tomography (CT) Dose Index (CTDIvol) and the Dose Length Product (DLP), and are measured in units of mGy and mGy-cm, respectively. These indicators are not patient dose, but values generated from the CT scanner acquisition factors. The report includes radiation exposure data for exposures received during this examination. FINDINGS: Lower neck: Normal thyroid. Lungs: No focal consolidation. Moderate centrilobular emphysema. Heart/Vascular Structures: Coronary artery calcifications. Lymph Nodes: No adenopathy Pleura: No pleural effusion or significant pneumothorax. Musculoskeletal: No acute osseous abnormality.Bilateral shoulder prosthesis. Soft tissues: Normal. Upper abdomen: Post cholecystectomy. IMPRESSION: No suspicious pulmonary nodule. LUNG RADS Category 1: Continue annual screening with LDCT
== END 2025-01-05 23:59 | disposition home or self-care (01) ==
LOC: RAD 13:30
PROVIDERS: ATTEND Nurse Practitioner Occupational Health
DX: Z12.2 Encounter for screening for malignant neoplasm of respiratory organs (principal); J43.2 Centrilobular emphysema; I25.10 Atherosclerotic heart disease of native coronary artery without angina pectoris; Z90.49 Acquired absence of other specified parts of digestive tract; Z87.891 Personal history of nicotine dependence
CPT/HCPCS: 71271